=== PATIENT | female | born 1945 | race African-American/Black ===

== ENCOUNTER 2022-02-10 05:43 | Inpatient (IN) ==
[2022-02-10] MEDS ORDERED: VANCOMYCIN INJ 1,000 MG in SODIUM CHLORIDE 0.9% 250 ML IV ONE (06:00)
[2022-02-10] MEDS ORDERED: ROCURONIUM 50 MG/5 ML VIAL IV ONE (06:27)
[2022-02-10] MEDS ORDERED: LIDOCAINE 2% 5 ML VIAL ONE (06:27)
[2022-02-10] MEDS ORDERED: propofoL 200 MG/20 ML VIAL IV ONE (06:27)
[2022-02-10] MEDS ORDERED: fentaNYL 100 MCG/2 ML VIAL ONE (06:27)
[2022-02-10] MEDS ORDERED: ONDANSETRON 4 MG/2 ML VIAL ONE (06:27)
[2022-02-10] MEDS ORDERED: MIDAZOLAM 2 MG/2 ML VIAL ONE (06:27)
[2022-02-10] MEDS ORDERED: DEXAMETHASONE 4 MG/1 ML VIAL ONE ×2 (06:27→06:47)
[2022-02-10] MEDS ORDERED: SEVOFLURANE 1 UNIT/15 MINUTE INH ONE ×6 (06:27→09:27)
[2022-02-10] MEDS ORDERED: ACETAMINOPHEN 500 MG TABLET PO ONE (06:36)
[2022-02-10] MEDS ORDERED: GABAPENTIN 400 MG CAPSULE PO ONE (06:36)
[2022-02-10 06:45] LABS: Calcium 10.8 MG/DL (8.5-10.1); Osmolality,Calculated 260.7 MOS/KG (273-304); Potassium 3.5 MMOL/L (3.5-5.1)
[2022-02-10] MEDS ORDERED: ROPIVACAINE 0.5% 30 ML VIAL ONE (06:47)
[2022-02-10] MEDS ORDERED: LIDOCAINE 1% 5 ML VIAL ONE (06:47)
[2022-02-10] MEDS ORDERED: DEXMEDETOMIDINE 200 MCG/2 ML VIAL ONE (06:53)
[2022-02-10] MEDS: LACTATED RINGERS 1,000 ML IV SCH ×3 (07:45→18:58)
[2022-02-10] MEDS ORDERED: ePHEDrine 50 MG/ML VIAL ONE (08:03)
[2022-02-10] MEDS ORDERED: PHENYLEPHRINE 1 MG/10 ML SYRINGE IV ONE (08:07)
[2022-02-10] MEDS ORDERED: GLYCOPYRROLATE 0.4 MG/2 ML VIAL ONE (09:24)
[2022-02-10] MEDS ORDERED: NEOSTIGMINE 10 MG/10 ML VIAL ONE (09:24)
[2022-02-10] MEDS ORDERED: TEMAZEPAM 7.5 MG CAPSULE PO PRN (10:33)
[2022-02-10] MEDS ORDERED: diphenhydrAMINE CAP 25 MG CAPSULE PO PRN (10:33)
[2022-02-10] MEDS ORDERED: PROMETHAZINE 25 MG/1 ML VIAL IM PRN (10:33)
[2022-02-10] MEDS ORDERED: MORPHINE 2 MG/1 ML SYRINGE IV PRN ×3 (10:33→11:12)
[2022-02-10] MEDS ORDERED: ONDANSETRON 4 MG/2 ML VIAL IV PRN (10:33)
[2022-02-10] MEDS ORDERED: MELOXICAM 7.5 MG TABLET PO PRN (10:35)
[2022-02-10] MEDS: hydrALAZINE 10 MG TABLET PO SCH (14:44)
[2022-02-10] MEDS ORDERED: LACTATED RINGERS 1,000 ML IV ONE (15:00)
[2022-02-10] MEDS: DOCUSATE SODIUM 100 MG CAPSULE PO SCH (20:24)
[2022-02-10] MEDS: GABAPENTIN 300 MG CAPSULE PO SCH (20:25)
[2022-02-10] MEDS: POTASSIUM CHLORIDE 20 MEQ TABLET PO SCH (20:25)
[2022-02-11 05:23] LABS: Basophils % 0.1 % (0.0-0.8); Hematocrit 25.2 VOL% (35.7-47.0); Hemoglobin 8.2 GM/DL (12.0-16.0); Immature Granulocytes % 0.4 %; Immature Granulocytes Absolute 0.04 #; Lymphocytes # 0.7 10*3/uL (1.4-4.0); Lymphocytes % 7.4 % (21.3-54.2); Mean Corpuscular HGB Conc 32.5 GM/DL (32-36); Mean Corpuscular Volume 87.2 FL (87-102); Mean Platelet Volume 8.7 FL (9.6-12.0); Monocytes # 0.9 10*3/uL (0.11-0.8); Monocytes % 9.1 % (1.7-12.7); Platelet Count 195 T/CUMM (130-400); Red Blood Count 2.89 MC/CUMM (3.8-5.5); Red Cell Distribution Width 12.5 % (9.3-17.3)
[2022-02-11] MEDS: LACTATED RINGERS 1,000 ML IV SCH (05:30)
[2022-02-11 05:53] LABS: Calcium 9.7 MG/DL (8.5-10.1); Osmolality,Calculated 266.4 MOS/KG (273-304); Potassium 4.7 MMOL/L (3.5-5.1)
[2022-02-11] MEDS: POTASSIUM CHLORIDE 20 MEQ TABLET PO SCH ×2 (08:35→21:03)
[2022-02-11] MEDS: GABAPENTIN 300 MG CAPSULE PO SCH ×2 (08:35→21:02)
[2022-02-11] MEDS: ASPIRIN EC 81 MG TABLET PO SCH (08:35)
[2022-02-11] MEDS: DOCUSATE SODIUM 100 MG CAPSULE PO SCH ×2 (08:35→21:02)
[2022-02-11] MEDS ORDERED: ACETAMINOPHEN 325 MG TABLET PO PRN (10:34)
[2022-02-11] MEDS: FONDAPARINUX 2.5 MG/0.5 ML SYRINGE SUBCUT SCH (21:03)
[2022-02-12 04:37] LABS: Basophils % 0.5 % (0.0-0.8); Eosinophils % 0.4 % (0.00-10.9); Hematocrit 21.9 VOL% (35.7-47.0); Hemoglobin 7.1 GM/DL (12.0-16.0); Immature Granulocytes % 0.5 %; Immature Granulocytes Absolute 0.04 #; Lymphocytes # 1.6 10*3/uL (1.4-4.0); Lymphocytes % 19.6 % (21.3-54.2); Mean Corpuscular HGB Conc 32.4 GM/DL (32-36); Mean Platelet Volume 8.8 FL (9.6-12.0); Monocytes # 1.3 10*3/uL (0.11-0.8); Monocytes % 15.9 % (1.7-12.7); Neutrophils % 63.1 % (38.7-73.9); Platelet Count 171 T/CUMM (130-400); Red Blood Count 2.49 MC/CUMM (3.8-5.5); Red Cell Distribution Width 12.8 % (9.3-17.3); White Blood Count 8.1 T/CUMM (4-12)
[2022-02-12 04:57] LABS: Calcium 8.7 MG/DL (8.5-10.1); Osmolality,Calculated 262.7 MOS/KG (273-304); Potassium 4.9 MMOL/L (3.5-5.1)
[2022-02-12 05:06] LABS: Hypochromia Slight; Lymphocytes 17 % (20-55); Microcytosis Slight; Platelet Estimate Adequate; Total Cells Counted 100
[2022-02-12] MEDS ORDERED: MAGNESIUM SULF RIDER 4 GM/100 ML PREMIX IV PRN (07:00)
[2022-02-12] MEDS ORDERED: MAGNESIUM SULF RIDER 2 GM/50 ML PREMIX IV PRN (07:00)
[2022-02-12] MEDS: amLODIPine 10 MG TABLET PO SCH (08:06)
[2022-02-12] MEDS: hydrALAZINE 10 MG TABLET PO SCH ×4 (08:06→21:29)
[2022-02-12] MEDS: CHLORTHALIDONE 25 MG TABLET PO SCH (08:06)
[2022-02-12] MEDS: LOSARTAN 50 MG TABLET PO SCH (08:06)
[2022-02-12] MEDS: ASPIRIN EC 81 MG TABLET PO SCH (08:42)
[2022-02-12] MEDS: GABAPENTIN 300 MG CAPSULE PO SCH ×2 (08:42→22:08)
[2022-02-12] MEDS: DOCUSATE SODIUM 100 MG CAPSULE PO SCH ×2 (08:42→21:28)
[2022-02-12] MEDS: POTASSIUM CHLORIDE 20 MEQ TABLET PO SCH ×2 (08:42→21:29)
[2022-02-12] MEDS ORDERED: SODIUM CHLORIDE 0.9% 1,000 ML IV PRN (08:49)
[2022-02-12 11:45] LABS: Hematocrit 22.5 VOL% (35.7-47.0); Hemoglobin 7.3 GM/DL (12.0-16.0)
[2022-02-12] MEDS: MAGNESIUM HYDROXIDE SUSP 30 ML UDCUP PO PRN ×2 (13:22→13:23)
[2022-02-12 20:38] LABS: Hematocrit 20.9 VOL% (35.7-47.0); Hemoglobin 6.9 GM/DL (12.0-16.0)
[2022-02-12] MEDS: FONDAPARINUX 2.5 MG/0.5 ML SYRINGE SUBCUT SCH (21:29)
[2022-02-13] MEDS: BISACODYL 10 MG SUPP RECTAL PRN (06:02)
[2022-02-13 06:13] LABS: Basophils % 0.5 % (0.0-0.8); Eosinophils # 0.1 10*3/uL (0.0-0.87); Eosinophils % 1.5 % (0.00-10.9); Hematocrit 22.8 VOL% (35.7-47.0); Hemoglobin 7.6 GM/DL (12.0-16.0); Immature Granulocytes % 0.6 %; Immature Granulocytes Absolute 0.05 #; Lymphocytes # 1.4 10*3/uL (1.4-4.0); Lymphocytes % 17.6 % (21.3-54.2); Mean Corpuscular HGB Conc 33.3 GM/DL (32-36); Mean Corpuscular Volume 86.4 FL (87-102); Mean Platelet Volume 8.8 FL (9.6-12.0); Monocytes # 0.9 10*3/uL (0.11-0.8); Monocytes % 11.1 % (1.7-12.7); Neutrophils % 68.7 % (38.7-73.9); Platelet Count 158 T/CUMM (130-400); Red Blood Count 2.64 MC/CUMM (3.8-5.5); Red Cell Distribution Width 12.8 % (9.3-17.3); White Blood Count 7.9 T/CUMM (4-12)
[2022-02-13] MEDS: LOSARTAN 50 MG TABLET PO SCH (08:59)
[2022-02-13] MEDS: DOCUSATE SODIUM 100 MG CAPSULE PO SCH ×2 (08:59→20:51)
[2022-02-13] MEDS: POTASSIUM CHLORIDE 20 MEQ TABLET PO SCH ×2 (08:59→20:53)
[2022-02-13] MEDS: hydrALAZINE 10 MG TABLET PO SCH ×4 (08:59→20:51)
[2022-02-13] MEDS: CHLORTHALIDONE 25 MG TABLET PO SCH (09:00)
[2022-02-13] MEDS: amLODIPine 10 MG TABLET PO SCH (09:00)
[2022-02-13] MEDS: GABAPENTIN 300 MG CAPSULE PO SCH ×2 (09:00→20:51)
[2022-02-13] MEDS: ASPIRIN EC 81 MG TABLET PO SCH (09:00)
[2022-02-13] MEDS: LACTULOSE 20 GM/30 ML UDCUP PO PRN (11:10)
[2022-02-13 12:33] LABS: Hematocrit 25.3 VOL% (35.7-47.0); Hemoglobin 8.4 GM/DL (12.0-16.0)
[2022-02-13] MEDS ORDERED: SODIUM CHLORIDE 0.9% 1,000 ML IV ONE (16:00)
[2022-02-13 16:35] LABS: Hematocrit 23.5 VOL% (35.7-47.0); Hemoglobin 7.6 GM/DL (12.0-16.0)
[2022-02-13 19:40] LABS: Hematocrit 21.5 VOL% (35.7-47.0); Hemoglobin 7.2 GM/DL (12.0-16.0)
[2022-02-13] MEDS: FONDAPARINUX 2.5 MG/0.5 ML SYRINGE SUBCUT SCH (20:51)
[2022-02-14 05:48] LABS: Hematocrit 21.7 VOL% (35.7-47.0)
[2022-02-14] MEDS ORDERED: SODIUM PHOSPHATE ENEMA 133 ML BOTTLE RECTAL PRN (07:55)
[2022-02-14] MEDS ORDERED: BISACODYL 10 MG SUPP RECTAL ONE (08:15)
[2022-02-14 09:40] LABS: Bacteria,Urine Occasional /HPF (Few); Hyaline Casts,Urine 1 /LPF (0-3); Mucus,Urine Occasional /LPF (Occasional); RBC,Urine 4 /HPF (0-4); Squamous Epithelial Cell,Urine Occasional /HPF (0-10)
[2022-02-14 09:41] LABS: Bilirubin,Urine Negative (Negative); Blood, Urine Negative (Negative); Glucose,Urine (UA) Negative (Negative); Ketones,Urine Negative (Negative); Nitrite,Urine Negative (Negative); Protein,Urine Negative (Negative); Urine Appearance Clear (Clear); Urine Color Yellow (Yellow); Urine Specific Gravity 1.015 (1.001-1.035)
[2022-02-14 09:42] LABS: Urine Urobilinogen 0.2 eU/dL (<2.0)
[2022-02-14] MEDS: CHLORTHALIDONE 25 MG TABLET PO SCH (09:42)
[2022-02-14] MEDS: ASPIRIN EC 81 MG TABLET PO SCH (09:42)
[2022-02-14] MEDS: POTASSIUM CHLORIDE 20 MEQ TABLET PO SCH ×2 (09:42→21:56)
[2022-02-14] MEDS: DOCUSATE SODIUM 100 MG CAPSULE PO SCH ×2 (09:43→21:56)
[2022-02-14] MEDS: GABAPENTIN 300 MG CAPSULE PO SCH ×2 (09:43→21:00)
[2022-02-14] MEDS: hydrALAZINE 10 MG TABLET PO SCH ×4 (09:47→21:00)
[2022-02-14 10:27] LABS: Basophils % 0.5 % (0.0-0.8); Eosinophils # 0.2 10*3/uL (0.0-0.87); Eosinophils % 1.7 % (0.00-10.9); Hemoglobin 8.1 GM/DL (12.0-16.0); Immature Granulocytes % 0.3 %; Immature Granulocytes Absolute 0.03 #; Lymphocytes # 1.2 10*3/uL (1.4-4.0); Lymphocytes % 13.5 % (21.3-54.2); Mean Corpuscular HGB Conc 32.4 GM/DL (32-36); Mean Platelet Volume 8.7 FL (9.6-12.0); Monocytes # 0.5 10*3/uL (0.11-0.8); Monocytes % 5.6 % (1.7-12.7); Neutrophils % 78.4 % (38.7-73.9); Platelet Count 201 T/CUMM (130-400); Red Blood Count 2.81 MC/CUMM (3.8-5.5); Red Cell Distribution Width 12.8 % (9.3-17.3); White Blood Count 8.6 T/CUMM (4-12)
[2022-02-14 10:46] LABS: Albumin 2.5 G/DL (3.4-5.0); Bilirubin,Total 0.4 MG/DL (0.20-1.00); Osmolality,Calculated 265.5 MOS/KG (273-304); Potassium 3.9 MMOL/L (3.5-5.1); Total Protein 6.3 G/DL (6.4-8.2)
[2022-02-14 11:50] LABS: Hematocrit 23.2 VOL% (35.7-47.0); Hemoglobin 7.5 GM/DL (12.0-16.0)
[2022-02-14] MEDS: BISACODYL 10 MG SUPP RECTAL PRN (18:01)
[2022-02-15] MEDS: ASPIRIN EC 81 MG TABLET PO SCH (08:40)
[2022-02-15] MEDS: POTASSIUM CHLORIDE 20 MEQ TABLET PO SCH ×2 (08:40→21:31)
[2022-02-15] MEDS: CHLORTHALIDONE 25 MG TABLET PO SCH (08:40)
[2022-02-15] MEDS: GABAPENTIN 300 MG CAPSULE PO SCH ×2 (08:40→21:31)
[2022-02-15] MEDS: DOCUSATE SODIUM 100 MG CAPSULE PO SCH ×2 (08:41→21:31)
[2022-02-15] MEDS: hydrALAZINE 10 MG TABLET PO SCH ×4 (08:41→21:32)
[2022-02-15 09:29] LABS: Hematocrit 23.7 VOL% (35.7-47.0); Hemoglobin 7.7 GM/DL (12.0-16.0)
[2022-02-16 05:16] LABS: Basophils % 0.3 % (0.0-0.8); Eosinophils # 0.1 10*3/uL (0.0-0.87); Eosinophils % 1.4 % (0.00-10.9); Hematocrit 19.8 VOL% (35.7-47.0); Immature Granulocytes % 0.4 %; Immature Granulocytes Absolute 0.03 #; Lymphocytes # 0.7 10*3/uL (1.4-4.0); Lymphocytes % 10.6 % (21.3-54.2); Mean Corpuscular HGB Conc 32.3 GM/DL (32-36); Mean Corpuscular Volume 88.4 FL (87-102); Mean Platelet Volume 8.5 FL (9.6-12.0); Monocytes # 0.9 10*3/uL (0.11-0.8); Monocytes % 12.2 % (1.7-12.7); NRBC # 0.03 10*3/uL; Neutrophils % 75.1 % (38.7-73.9); Platelet Count 245 T/CUMM (130-400); Red Blood Count 2.24 MC/CUMM (3.8-5.5); Red Cell Distribution Width 12.8 % (9.3-17.3)
[2022-02-16 05:22] LABS: Hemoglobin 6.4 GM/DL (12.0-16.0)
[2022-02-16 05:40] LABS: Band Neutrophils 8 % (0-10); Eosinophils 2 % (0-10); Lymphocytes 11 % (20-55); Microcytosis 1+; Nucleated Red Blood Cells 2 (0-5); Total Cells Counted 100
[2022-02-16 05:41] LABS: Ovalocytes Slight; Platelet Estimate Normal; Polychromasia Slight
[2022-02-16] MEDS ORDERED: SODIUM CHLORIDE 0.9% 1,000 ML IV PRN (06:57)
[2022-02-16] MEDS: DOCUSATE SODIUM 100 MG CAPSULE PO SCH ×2 (08:41→20:53)
[2022-02-16] MEDS: POTASSIUM CHLORIDE 20 MEQ TABLET PO SCH ×2 (08:41→20:53)
[2022-02-16] MEDS: CHLORTHALIDONE 25 MG TABLET PO SCH (08:41)
[2022-02-16] MEDS: ASPIRIN EC 81 MG TABLET PO SCH (08:42)
[2022-02-16] MEDS: GABAPENTIN 300 MG CAPSULE PO SCH ×2 (08:42→20:53)
[2022-02-16] MEDS: hydrALAZINE 10 MG TABLET PO SCH ×4 (08:42→20:53)
[2022-02-16 16:08] LABS: Hematocrit 29.3 VOL% (35.7-47.0)
[2022-02-16 16:09] LABS: Hemoglobin 9.6 GM/DL (12.0-16.0)
[2022-02-17 05:57] LABS: Basophils % 0.4 % (0.0-0.8); Eosinophils # 0.2 10*3/uL (0.0-0.87); Eosinophils % 1.9 % (0.00-10.9); Hematocrit 29.9 VOL% (35.7-47.0); Hemoglobin 9.9 GM/DL (12.0-16.0); Immature Granulocytes % 0.6 %; Immature Granulocytes Absolute 0.05 #; Lymphocytes # 0.9 10*3/uL (1.4-4.0); Lymphocytes % 11.2 % (21.3-54.2); Mean Corpuscular HGB Conc 33.1 GM/DL (32-36); Mean Corpuscular Volume 88.2 FL (87-102); Mean Platelet Volume 8.3 FL (9.6-12.0); Monocytes # 0.9 10*3/uL (0.11-0.8); Monocytes % 10.7 % (1.7-12.7); NRBC # 0.05 10*3/uL; Neutrophils % 75.2 % (38.7-73.9); Platelet Count 249 T/CUMM (130-400); Red Blood Count 3.39 MC/CUMM (3.8-5.5); Red Cell Distribution Width 13.7 % (9.3-17.3)
[2022-02-17 06:23] LABS: Band Neutrophils 4 % (0-10); Lymphocytes 9 % (20-55); Platelet Estimate Adequate; Total Cells Counted 100
[2022-02-17] MEDS: hydrALAZINE 10 MG TABLET PO SCH ×4 (10:00→20:19)
[2022-02-17 10:51] LABS: Albumin 2.4 G/DL (3.4-5.0); Bilirubin,Direct 0.14 MG/DL (0.0-0.20); Bilirubin,Indirect 0.5 MG/DL (0.0-1.0); Bilirubin,Total 0.6 MG/DL (0.20-1.00); Calcium 9.8 MG/DL (8.5-10.1); Osmolality,Calculated 276.7 MOS/KG (273-304); Potassium 2.9 MMOL/L (3.5-5.1); Total Protein 6.2 G/DL (6.4-8.2)
[2022-02-17] MEDS: ASPIRIN EC 81 MG TABLET PO SCH (11:31)
[2022-02-17] MEDS: DOCUSATE SODIUM 100 MG CAPSULE PO SCH ×2 (11:31→20:19)
[2022-02-17] MEDS: POTASSIUM CHLORIDE 20 MEQ TABLET PO SCH ×2 (11:34→20:19)
[2022-02-17] MEDS: GABAPENTIN 300 MG CAPSULE PO SCH ×2 (11:35→20:19)
[2022-02-17] MEDS: CHLORTHALIDONE 25 MG TABLET PO SCH (11:36)
[2022-02-18 05:27] LABS: Basophils % 0.3 % (0.0-0.8); Eosinophils # 0.1 10*3/uL (0.0-0.87); Hematocrit 30.2 VOL% (35.7-47.0); Hemoglobin 10.1 GM/DL (12.0-16.0); Immature Granulocytes % 0.9 %; Immature Granulocytes Absolute 0.08 #; Lymphocytes # 1.1 10*3/uL (1.4-4.0); Lymphocytes % 12.4 % (21.3-54.2); Mean Corpuscular HGB Conc 33.4 GM/DL (32-36); Mean Corpuscular Volume 87.5 FL (87-102); Mean Platelet Volume 8.1 FL (9.6-12.0); Monocytes # 0.8 10*3/uL (0.11-0.8); Monocytes % 9.2 % (1.7-12.7); NRBC # 0.02 10*3/uL; Neutrophils % 76.2 % (38.7-73.9); Platelet Count 264 T/CUMM (130-400); Red Blood Count 3.45 MC/CUMM (3.8-5.5); Red Cell Distribution Width 13.6 % (9.3-17.3); White Blood Count 8.6 T/CUMM (4-12)
[2022-02-18 05:40] LABS: Calcium 9.8 MG/DL (8.5-10.1)
[2022-02-18 05:54] LABS: Band Neutrophils 2 % (0-10); Lymphocytes 14 % (20-55); Platelet Estimate Adequate; Total Cells Counted 100
[2022-02-18 08:26] LABS: Albumin 2.3 G/DL (3.4-5.0); Bilirubin,Total 0.7 MG/DL (0.20-1.00); Calcium 9.6 MG/DL (8.5-10.1); Potassium 2.8 MMOL/L (3.5-5.1); Total Protein 6.3 G/DL (6.4-8.2)
[2022-02-18] MEDS: ASPIRIN EC 81 MG TABLET PO SCH (09:20)
[2022-02-18] MEDS: CHLORTHALIDONE 25 MG TABLET PO SCH (09:20)
[2022-02-18] MEDS: DOCUSATE SODIUM 100 MG CAPSULE PO SCH ×2 (09:20→20:07)
[2022-02-18] MEDS: hydrALAZINE 10 MG TABLET PO SCH ×4 (09:20→20:07)
[2022-02-18] MEDS: POTASSIUM CHLORIDE 20 MEQ TABLET PO SCH ×2 (09:20→20:07)
[2022-02-18] MEDS: GABAPENTIN 300 MG CAPSULE PO SCH ×2 (09:20→20:07)
[2022-02-18] MEDS: LOSARTAN 50 MG TABLET PO SCH (13:48)
[2022-02-18] MEDS: LACTULOSE 20 GM/30 ML UDCUP PO PRN (20:11)
[2022-02-18] MEDS: POTASSIUM CHLORIDE RIDER 10 MEQ/100 ML PREMIX IV PRN ×2 (22:41→23:55)
[2022-02-19] MEDS: POTASSIUM CHLORIDE RIDER 10 MEQ/100 ML PREMIX IV PRN ×9 (01:07→23:52)
[2022-02-19 04:07] LABS: Basophils % 0.3 % (0.0-0.8); Eosinophils # 0.1 10*3/uL (0.0-0.87); Eosinophils % 0.7 % (0.00-10.9); Hematocrit 32.3 VOL% (35.7-47.0); Hemoglobin 10.8 GM/DL (12.0-16.0); Immature Granulocytes % 1.6 %; Immature Granulocytes Absolute 0.17 #; Lymphocytes # 0.9 10*3/uL (1.4-4.0); Lymphocytes % 8.7 % (21.3-54.2); Mean Corpuscular HGB Conc 33.4 GM/DL (32-36); Mean Corpuscular Volume 87.8 FL (87-102); Mean Platelet Volume 7.9 FL (9.6-12.0); Monocytes # 0.8 10*3/uL (0.11-0.8); Monocytes % 7.5 % (1.7-12.7); Neutrophils % 81.2 % (38.7-73.9); Platelet Count 378 T/CUMM (130-400); Red Blood Count 3.68 MC/CUMM (3.8-5.5); Red Cell Distribution Width 13.6 % (9.3-17.3); White Blood Count 10.8 T/CUMM (4-12)
[2022-02-19 04:27] LABS: Albumin 2.6 G/DL (3.4-5.0); Bilirubin,Total 0.7 MG/DL (0.20-1.00); Calcium 9.9 MG/DL (8.5-10.1); Osmolality,Calculated 276.7 MOS/KG (273-304); Potassium 2.9 MMOL/L (3.5-5.1); Total Protein 6.7 G/DL (6.4-8.2)
[2022-02-19] MEDS: GABAPENTIN 300 MG CAPSULE PO SCH ×2 (10:00→21:09)
[2022-02-19] MEDS: CHLORTHALIDONE 25 MG TABLET PO SCH (10:01)
[2022-02-19] MEDS: POTASSIUM CHLORIDE 20 MEQ TABLET PO SCH ×2 (10:01→21:09)
[2022-02-19] MEDS: ASPIRIN EC 81 MG TABLET PO SCH (10:01)
[2022-02-19] MEDS: DOCUSATE SODIUM 100 MG CAPSULE PO SCH ×2 (10:02→21:09)
[2022-02-19] MEDS: LOSARTAN 50 MG TABLET PO SCH (10:05)
[2022-02-19] MEDS: hydrALAZINE 10 MG TABLET PO SCH ×4 (10:06→21:09)
[2022-02-19 13:31] LABS: Albumin 2.6 G/DL (3.4-5.0); Bilirubin,Total 0.7 MG/DL (0.20-1.00); Calcium 9.9 MG/DL (8.5-10.1); Potassium 3.3 MMOL/L (3.5-5.1); Total Protein 6.7 G/DL (6.4-8.2)
[2022-02-20] MEDS: POTASSIUM CHLORIDE RIDER 10 MEQ/100 ML PREMIX IV PRN ×2 (02:21→03:50)
[2022-02-20 06:11] LABS: Basophils # 0.1 10*3/uL (0.0-0.2); Basophils % 0.5 % (0.0-0.8); Eosinophils # 0.2 10*3/uL (0.0-0.87); Eosinophils % 1.6 % (0.00-10.9); Hematocrit 28.7 VOL% (35.7-47.0); Hemoglobin 9.7 GM/DL (12.0-16.0); Immature Granulocytes % 2.7 %; Immature Granulocytes Absolute 0.27 #; Lymphocytes # 1.4 10*3/uL (1.4-4.0); Lymphocytes % 13.9 % (21.3-54.2); Mean Corpuscular HGB Conc 33.8 GM/DL (32-36); Mean Corpuscular Volume 87.2 FL (87-102); Mean Platelet Volume 8.3 FL (9.6-12.0); Monocytes # 0.7 10*3/uL (0.11-0.8); Monocytes % 7.2 % (1.7-12.7); Neutrophils % 74.1 % (38.7-73.9); Platelet Count 357 T/CUMM (130-400); Red Blood Count 3.29 MC/CUMM (3.8-5.5); White Blood Count 9.9 T/CUMM (4-12)
[2022-02-20 06:33] LABS: Albumin 2.4 G/DL (3.4-5.0); Bilirubin,Total 0.6 MG/DL (0.20-1.00); Calcium 9.4 MG/DL (8.5-10.1); Osmolality,Calculated 274.7 MOS/KG (273-304); Potassium 3.8 MMOL/L (3.5-5.1); Total Protein 6.2 G/DL (6.4-8.2)
[2022-02-20] MEDS: ASPIRIN EC 81 MG TABLET PO SCH (09:00)
[2022-02-20] MEDS: POTASSIUM CHLORIDE 20 MEQ TABLET PO SCH ×2 (09:00→21:12)
[2022-02-20] MEDS: LOSARTAN 50 MG TABLET PO SCH (09:00)
[2022-02-20] MEDS: CHLORTHALIDONE 25 MG TABLET PO SCH (09:01)
[2022-02-20] MEDS: GABAPENTIN 300 MG CAPSULE PO SCH ×2 (09:01→21:12)
[2022-02-20] MEDS: DOCUSATE SODIUM 100 MG CAPSULE PO SCH ×2 (09:01→21:12)
[2022-02-20] MEDS: hydrALAZINE 10 MG TABLET PO SCH ×4 (09:01→21:12)
[2022-02-20] MEDS: amLODIPine 10 MG TABLET PO SCH (11:30)
[2022-02-21 04:54] LABS: Basophils % 0.4 % (0.0-0.8); Eosinophils # 0.1 10*3/uL (0.0-0.87); Eosinophils % 1.4 % (0.00-10.9); Hematocrit 30.4 VOL% (35.7-47.0); Hemoglobin 10.2 GM/DL (12.0-16.0); Immature Granulocytes % 4.1 %; Immature Granulocytes Absolute 0.39 #; Lymphocytes # 1.1 10*3/uL (1.4-4.0); Lymphocytes % 11.2 % (21.3-54.2); Mean Corpuscular HGB Conc 33.6 GM/DL (32-36); Mean Corpuscular Volume 87.6 FL (87-102); Mean Platelet Volume 7.8 FL (9.6-12.0); Monocytes # 0.8 10*3/uL (0.11-0.8); Monocytes % 8.2 % (1.7-12.7); Neutrophils % 74.7 % (38.7-73.9); Platelet Count 366 T/CUMM (130-400); Red Blood Count 3.47 MC/CUMM (3.8-5.5); Red Cell Distribution Width 13.9 % (9.3-17.3); White Blood Count 9.6 T/CUMM (4-12)
[2022-02-21 05:23] LABS: Albumin 2.4 G/DL (3.4-5.0); Bilirubin,Total 0.6 MG/DL (0.20-1.00); Calcium 9.8 MG/DL (8.5-10.1); Potassium 3.5 MMOL/L (3.5-5.1); Total Protein 6.2 G/DL (6.4-8.2)
[2022-02-21] MEDS: POTASSIUM CHLORIDE 20 MEQ TABLET PO SCH (09:43)
[2022-02-21] MEDS: GABAPENTIN 300 MG CAPSULE PO SCH (09:43)
[2022-02-21] MEDS: CHLORTHALIDONE 25 MG TABLET PO SCH (09:43)
[2022-02-21] MEDS: DOCUSATE SODIUM 100 MG CAPSULE PO SCH (09:44)
[2022-02-21] MEDS: hydrALAZINE 10 MG TABLET PO SCH ×3 (09:44→16:08)
[2022-02-21] MEDS: LOSARTAN 50 MG TABLET PO SCH (09:44)
[2022-02-21] MEDS: ASPIRIN EC 81 MG TABLET PO SCH (09:44)
[2022-02-21] MEDS: amLODIPine 10 MG TABLET PO SCH (09:46)
[2022-02-21 15:55] VITALS: BP 115/84
== END 2022-02-21 19:41 | disposition swing bed (61) | DRG 470 ==
LOC: N.OR 05:43 → N.SDSINP 05:47 → N.3E 11:38
PROVIDERS: ADMIT Orthopaedic Surgery; ATTEND Orthopaedic Surgery